=== PATIENT | female | born 1945 | race Caucasian/White ===

== ENCOUNTER 2024-03-23 02:32 | Emergency (ER) | payer MEDICARE, OTHER ==
--- NOTE | 2024-03-23 02:36 | ERPHSYRPT ---
- History of Present Illness Source: patient, family Exam Limitations: no limitations Timing/Duration: yesterday Activites at Onset: none Quality: burning, pressure Onset Location: suprapubic Severity of Pain-Max: moderate Severity of Pain-Current: moderate Sexual intercourse history: non-contributory Modifying Factors: Improves With: urinating Associated Symptoms: abdominal pain (Prepubic), dysuria, urinary frequency, other (Gross hematuria) <SILVESTRE FAULKNER - Last Filed: 03/23/24 06:58> <BUSHRA REDDY - Last Filed: 03/23/24 09:06> - History of Present Illness Time Seen by Provider: 03/23/24 02:36 Physician History: This is a 78-year-old white female patient who arrives by private vehicle escorted by her family member. This patient is a patient of Dr. Reddy. At 9 PM on 03/22/2024, patient was having complaints of burning with urination as well as suprapubic pressure and urinary frequency. At 2:10 AM she noticed the same symptoms but then noticed gross hematuria present. Symptoms seem worse since 2:10 AM today. Patient has never had this type of thing in the past. Patient has never been seen in our emergency department. Patient has no nausea vomiting or diarrhea symptoms. She has no chest pain. She denies shortness of breath. (SILVESTRE FAULKNER) Allergies/Adverse Reactions: naproxen Allergy (Intermediate, Verified 03/23/24 02:41) Hives Travel Risk - International Travel Have you traveled outside of the country in past 3 weeks: No - Emerging Infectious Disease Are you exhibiting symptoms associated with any current EIDs: No <SILVESTRE FAULKNER - Last Filed: 03/23/24 06:58> - Review of Systems Constitutional: No Symptoms Eyes: No Symptoms Ears, Nose, & Throat: No Symptoms Respiratory: No Symptoms Cardiac: No Symptoms Abdominal/Gastrointestinal: Abdominal Pain (Suprapubic tenderness) Genitourinary Symptoms: Dysuria, Frequency, Hematuria (Gross hematuria) Musculoskeletal: No Symptoms Skin: No Symptoms Neurological: No Symptoms Psychological: No Symptoms Endocrine: No Symptoms Hematologic/Lymphatic: No Symptoms Immunological/Allergic: No Symptoms All Other Systems: Reviewed and Negative <SILVESTRE FAULKNER - Last Filed: 03/23/24 06:58> - Past Medical History Pertinent Past Medical History: Yes <SILVESTRE FAULKNER - Last Filed: 03/23/24 06:58> - Physical Exam General Appearance: mild distress, alert, anxiety Eye Exam: PERRL/EOMI, eyes nml inspection Ears, Nose, Throat Exam: normal ENT inspection, moist mucous membranes Neck Exam: normal inspection, non-tender, supple, full range of motion Respiratory Exam: normal breath sounds, lungs clear, airway intact, No chest tenderness, No respiratory distress Cardiovascular Exam: regular rate/rhythm, normal heart sounds, normal peripheral pulses Gastrointestinal/Abdomen Exam: soft, normal bowel sounds, tenderness (Suprapubic region to palpation), guarding (Mild tenderness to palpation of the suprapubic region) Pelvic Exam: not done Rectal Exam: not done Back Exam: normal inspection, normal range of motion, No CVA tenderness, No vertebral tenderness Extremity Exam: normal inspection, normal range of motion, pelvis stable Neurologic Exam: alert, oriented x 3, cooperative, irrigator valve pipe II-XII nml as tested, nml cerebellar function, nml station & gait, sensation nml Skin Exam: normal color, warm, dry Lymphatic Exam: No adenopathy SpO2 Interpretation: normal O2 Delivery: Room Air <SILVESTRE FAULKNER - Last Filed: 03/23/24 06:58> - Nursing Vital Signs Nursing Vital Signs: Initial Vital Signs Temperature 97.3 F 03/23/24 02:41 Pulse Rate 73 03/23/24 02:41 Respiratory Rate 16 03/23/24 02:41 Blood Pressure 213/79 03/23/24 02:41 O2 Sat by Pulse Oximetry 99 03/23/24 02:41 Pain Scale Pain Intensity 0 - Course Nursing assessment & vital signs reviewed: Yes <SILVESTRE FAULKNER - Last Filed: 03/23/24 06:58> Ordered Tests: Active Orders 24 hr Category Date Time Status Bladder Irrigation STAT Care 03/23/24 05:29 Active Mosquera [Catheter-Kirkman Mosquera] STAT Care 03/23/24 05:30 Active IV Insertion STAT Care 03/23/24 03:44 Active ABDOMEN AND PELVIS W/0 CONTRAS [CT] Stat Exams 03/23/24 03:45 Completed CBC Stat Lab 03/23/24 07:38 Completed CBC W DIFF Stat Lab 03/23/24 04:06 Completed CMP Stat Lab 03/23/24 04:06 Completed CULTURE,URINE Stat Lab 03/23/24 03:19 Received PROTIME WITH INR Stat Lab 03/23/24 04:06 Completed UA W/RFX UR CULTURE Stat Lab 03/23/24 03:19 Completed Medication Summary Discontinued Medications Generic Name Dose Route Start Last Admin Trade Name Riccardo PRN Reason Stop Dose Admin Sodium Chloride 500 mls @ 500 mls/hr 03/23/24 03:46 03/23/24 08:35 Sodium Chloride 0.9% 500 Ml IV 03/23/24 04:45 Infused .Q1H ONE Infusion Sodium Chloride Confirm 03/23/24 04:07 Sodium Chloride 0.9% 500 Ml Administered 03/23/24 04:08 Dose 500 mls @ ud IV .STK-MED ONE Levofloxacin 500 mg 03/23/24 07:03 03/23/24 08:35 Levofloxacin 500 Mg Tablet PO 03/23/24 07:04 Not Given STAT ONE Phenazopyridine HCl 200 mg 03/23/24 04:05 03/23/24 04:08 Phenazopyridine Hcl 200 Mg Tablet PO 03/23/24 04:06 200 mg STAT ONE Administration Phenazopyridine HCl Confirm 03/23/24 04:07 Phenazopyridine Hcl 200 Mg Tablet Administered 03/23/24 04:08 Dose 200 mg .ROUTE .STK-MED ONE Lab/Rad Data: Laboratory Result Diagrams 03/23/24 07:38 03/23/24 04:06 Laboratory Results 03/23/24 03/23/24 03/23/24 Range/Units 07:38 04:06 04:06 WBC 8.7 (3.98-10.04) x10^3/uL RBC 3.64 L (3.93-5.22) x10^6/uL Hgb 11.6 (11.2-15.7) g/dL Hct 34.8 (34.1-44.9) % MCV 95.6 H (79.4-94.8) fL MCH 31.9 (25.6-32.2) pg MCHC 33.3 (32.2-35.5) g/dL RDW 13.3 (11.7-14.4) % Plt Count 190 (182-369) x10^3/uL MPV 10.1 (9.4-12.3) fL Gran % (34.0-71.1) % Immature Gran % (Auto) (0.001-0.429) % Nucleat RBC Rel Count (0.00-0.2) % Eos # (Auto) (0.04-0.36) x10^3/uL Immature Gran # (Auto) (0.001-0.031) x10^3u/L Absolute Lymphs (auto) (1.18-3.74) x10^3/uL Absolute Monos (auto) (0.24-0.86) x10^3/uL Absolute Nucleated RBC (0.00-0.012) x10^3u/L Lymphocytes % (19.3-51.7) % Monocytes % (4.7-12.5) % Eosinophils % (0.7-5.8) % Basophils % (0.1-1.2) % Absolute Granulocytes (1.56-6.13) x10^3/uL Basophils # (0.01-0.08) x10^3/uL PT 10.4 (9.4-12.5) SECONDS INR 0.95 (0.8-3.0) Sodium 137 (135-145) mmol/L Potassium 4.3 (3.5-5.1) mmol/L Chloride 105 (98-107) mmol/L Carbon Dioxide 22 (22-30) mmol/L Anion Gap 14.9 (5-15) MEQ/L BUN 30 H (7-17) mg/dL Creatinine 1.05 H (0.52-1.04) mg/dL Estimated GFR 54.1 ML/MIN Glucose 177 H (74-106) mg/dL Calcium 9.9 (8.4-10.2) mg/dL Total Bilirubin 0.40 (0.2-1.3) mg/dL AST 36 (14-36) U/L ALT 30 (0-35) U/L Alkaline Phosphatase 50 (38-126) U/L Serum Total Protein 7.1 (6.3-8.2) g/dL Albumin 4.2 (3.5-5.0) g/dL Urine Color (Yellow) Urine Appearance (Clear) Urine pH (4.6-8.0) Ur Specific [place] (1.005-1.030) Urine Protein (Negative) Urine Glucose (UA) (Negative) mg/dL Urine Ketones (Negative) Urine Blood (Negative) Urine Nitrite (Negative) Urine Bilirubin (Negative) Urine Urobilinogen (0.2) mg/dL Ur Leukocyte Esterase (Negative) U Hyaline Cast (Auto) (0-2) /LPF Urine Microscopic RBC (0-5) /HPF Urine Microscopic WBC (0-5) /HPF Ur Epithelial Cells (None Seen) /HPF Urine Bacteria (None Seen) /HPF Urine Culture Reflexed (NO) ABO Group Rh Factor Antibody Screen (NEGATIVE) 03/23/24 03/23/24 03/23/24 Range/Units 04:06 03:55 03:19 WBC 6.0 (3.98-10.04) x10^3/uL RBC 3.84 L (3.93-5.22) x10^6/uL Hgb 12.2 (11.2-15.7) g/dL Hct 36.2 (34.1-44.9) % MCV 94.3 (79.4-94.8) fL MCH 31.8 (25.6-32.2) pg MCHC 33.7 (32.2-35.5) g/dL RDW 13.5 (11.7-14.4) % Plt Count 235 (182-369) x10^3/uL MPV 10.2 (9.4-12.3) fL Gran % 42.3 (34.0-71.1) % Immature Gran % (Auto) 0.2 (0.001-0.429) % Nucleat RBC Rel Count 0.0 (0.00-0.2) % Eos # (Auto) 0.11 (0.04-0.36) x10^3/uL Immature Gran # (Auto) 0.01 (0.001-0.031) x10^3u/L Absolute Lymphs (auto) 2.77 (1.18-3.74) x10^3/uL Absolute Monos (auto) 0.52 (0.24-0.86) x10^3/uL Absolute Nucleated RBC 0.00 (0.00-0.012) x10^3u/L Lymphocytes % 46.5 (19.3-51.7) % Monocytes % 8.7 (4.7-12.5) % Eosinophils % 1.8 (0.7-5.8) % Basophils % 0.5 (0.1-1.2) % Absolute Granulocytes 2.52 (1.56-6.13) x10^3/uL Basophils # 0.03 (0.01-0.08) x10^3/uL PT (9.4-12.5) SECONDS INR (0.8-3.0) Sodium (135-145) mmol/L Potassium (3.5-5.1) mmol/L Chloride (98-107) mmol/L Carbon Dioxide (22-30) mmol/L Anion Gap (5-15) MEQ/L BUN (7-17) mg/dL Creatinine (0.52-1.04) mg/dL Estimated GFR ML/MIN Glucose (74-106) mg/dL Calcium (8.4-10.2) mg/dL Total Bilirubin (0.2-1.3) mg/dL AST (14-36) U/L ALT (0-35) U/L Alkaline Phosphatase (38-126) U/L Serum Total Protein (6.3-8.2) g/dL Albumin (3.5-5.0) g/dL Urine Color Yellow (Yellow) Urine Appearance Turbid A (Clear) Urine pH 7.0 (4.6-8.0) Ur Specific [place] >=1.030 A (1.005-1.030) Urine Protein >=1000 A (Negative) Urine Glucose (UA) 100 A (Negative) mg/dL Urine Ketones Negative (Negative) Urine Blood Large A (Negative) Urine Nitrite Negative (Negative) Urine Bilirubin Negative (Negative) Urine Urobilinogen 0.2 (0.2) mg/dL Ur Leukocyte Esterase Trace A (Negative) U Hyaline Cast (Auto) NONE SEEN (0-2) /LPF Urine Microscopic RBC >100 A (0-5) /HPF Urine Microscopic WBC 3-5 (0-5) /HPF Ur Epithelial Cells Rare (None Seen) /HPF Urine Bacteria Rare A (None Seen) /HPF Urine Culture Reflexed YES (NO) ABO Group A Rh Factor POSITIVE Antibody Screen NEGATIVE (NEGATIVE) - Progress Air Movement: good Blood Culture(s) Obtained: Yes Counseled pt/family regarding: lab results, diagnosis, rad results <SILVESTRE FAULKNER - Last Filed: 03/23/24 06:58> - Progress Progress Note: 03/23/24 04:11 My medical decision making and the assignment of moderate complexity to this patient's medical issue today is based on review of the patient's past medical history, review the patient's medication list, reviewed patient drug allergy list, history present illness and physical findings on examination. The workup in this patient includes placement of an intravenous line, infusion of crystal loid solution, Pyridium orally, CBC, CMP, PT/INR, CT scan of the abdomen-pelvis without contrast and type and screen. Differential diagnosis includes but is not limited to urinary tract infection, hemorrhagic cystitis, bladder tumors, urinary system bleeding 03/23/24 06:58 I interpreted the patient's laboratory data results. Based on the laboratory data results the patient has possibly a mild urinary tract infection versus hemorrhagic cystitis. She has a normal hemoglobin at 12.2 and normal white count with no left shift. She has normal liver function test and normal coagulation studies. Her urine also shows a large amount of blood present. The CT scan of the abdomen pelvis without contrast was interpreted by the radiologist and I reviewed the impression. The impression states a minute left upper calyceal nonobstructing renal calculus. The urinary bladder shows heterogeneous, hypodense contents possibly hematoma. underlying soft tissues lesions cannot be excluded. Endoscopy/cystoscopy recommended. The patient is hemodynamically stable, her coags are within normal limits and her hemoglobin is normal. She has no pain. She has a three-way Mosquera catheter in place at this time and she is having aggressive irrigation of her urinary bladder with saline which seems to be clearing the urinary bladder of clots. We will continue this for another hour or so. I have discussed this with Dr. Reddy, who I am transferring care to at shift change. He will follow-up on reexamining her and make decisions on this patient's final disposition. (SILVESTRE FAULKNER) Medical Desision Making - Independent Historian Additional History obtained from: Family - Diagnostic Testing Diagnostic test were ordered, analyzed, and reviewed by me: Yes Radiological Interpretation: Reviewed by me, Teleradiologist Report <SILVESTRE FAULKNER - Last Filed: 03/23/24 06:58> - Independent Historian Additional History obtained from: Family - Discussion of managment Care discussed with:: PCP Reviewed:: Test results, Need for additional workup Agreed on:: Treatment plan, need for follow-up - Risk of complications The pt has a mod risk of morbidity or mortality based on: Need for minor surgical intervention in patient with know risk factors <BUSHRA REDDY - Last Filed: 03/23/24 09:06> - Departure Departure Disposition: Home Critical Care Time: No <SILVESTRE FAULKNER - Last Filed: 03/23/24 06:58> - Departure Departure Disposition: Home Critical Care Time: No <BUSHRA REDDY - Last Filed: 03/23/24 09:06> - Departure Clinical Impression: Gross hematuria Condition: Stable Referrals: BUSHRA REDDY MD [Primary Care Provider] - Follow Up with PCP/3 days Instructions: Blood in the urine (hematuria) in adults, How to Care for Your Mosquera Catheter, Mosquera Catheter Additional Instructions: We have made arrangements for home health nurse to come and check on your catheter. We are providing you some information about catheter care. Call your primary care physician on Monday morning to make an arrangements with the appointment with the urologist. Discharge/Care Plan SETH STEVENS was seen on 03/23/24 in the Emergency Room. The patient was counseled regarding Diagnosis,Lab results, Imaging studies, need for follow up and when to return to the Emergency Room. Prescriptions given: Discharge Note I have spoken with the patient and/or caregivers. I have explained the patient's condition, diagnosis and treatment plan based on the information available to me at this time. I have answered the patient's and/or caregiver's questions and addressed any concerns. The patient and/or caregivers have as good understanding of the patient's diagnosis, condition and treatment plan as can be expected at this point. The vital signs have been stable. The patient's condition is stable and appropriate for discharge from the emergency department. The patient will pursue further outpatient evaluation with the primary care physician or other designated or consulting physician as outlined in the discharge instructions. The patient and/or caregivers are agreeable to this plan of care and follow-up instructions have been explained in detail. The patient and/or caregivers have received these instruction. The patient/and or caregivers are aware that any significant change in condition or worsening of symptoms should prompt an immediate return to this or the closest emergency department or call 911. SETH STEVENS was seen on 03/23/24 n the Emergency Room. At that time you were treated for an emergent condition, during your visit Laboratory, Radiology and/or other procedures may have been ordered. It is very important that you follow-up with your Primary Care Physician BUSHRA REDDY within the next 24-48 hours to review your Emergency Room visit and the final results of testing that was ordered. Some test results such as Urine Cultures, Blood Cultures, and other cultures if ordered will not be finalized for 24-48 hours. If you do not have a Primary Care Provider please call the medical records department at [phone] to obtain a copy of your results or you may sign into our patient portal to obtain these results by visiting us @ [email or web address] and completing the following steps: 1. Click on the Patient Portal link 2. Click the Patient Self Enrollment Link to complete the enrollment form and entering your 3. Once the enrollment form is completed you will receive an email with a temporary ID and password at the email address you provided. 4. Next choose a user name and password. Your user name must be at least 4 characters long and your password must be at least 4 characters long. 5. Choose a security question from the list and provide your answer to the question. If you already have signed into the Health Portal you may access your Health Care Information 26/12 by the following steps: 1. Login to our website @ [email or web address]. Enter your original user name and password. FAQS [facility] Health Portal is an online tool that contains your Lab Results, Radiology Reports, Visit History, Discharge Instructions and Health Summary Lab and Radiology Results will not be available for 72 hours on the portal. The Portal is a secure site, passwords are encryted and URLs are re-written so they cannot be copied and pasted. You and authorized family members are the only ones who can access your Portal. Also there is a timeout feature that protects your information if you leave the Portal page open. If you have technical difficulty please use the Contact Us link on the page this will allow you to submit any questions you have regarding the Portal or you may contact the Medical Record Department at [phone]. Prescriptions: Ciprofloxacin [Cipro 500 MG] 500 mg PO BIDAC #20 tablet Cyclobenzaprine HCl 10 mg [Flexeril 10 MG] 10 mg PO TID #15 tablet
[2024-03-23 02:57] VITALS: TEMP 97.3
[2024-03-23] MEDS ORDERED: Sodium Chloride 0.9% 500 ML 500 ML IV ONE (04:07)
[2024-03-23] MEDS ORDERED: PYRIDIUM 200 MG ONE (04:07)
[2024-03-23] MEDS: Sodium Chloride 0.9% 500 ML 500 ML IV ONE (04:08)
[2024-03-23] MEDS: PYRIDIUM 200 MG PO ONE (04:08)
[2024-03-23 04:10] LABS: Absolute Neutrophil Ct (ANC) 2.52 x10^3/uL (1.56-6.13); BASOPHIL % 0.5 % (0.1-1.2); Basophil (Absolute #) 0.03 x10^3/uL (0.01-0.08); Eosinophil % 1.8 % (0.7-5.8); Eosinophil (Absolute #) 0.11 x10^3/uL (0.04-0.36); Hematocrit 36.2 % (34.1-44.9); Hemoglobin 12.2 g/dL (11.2-15.7); IMMATURE GRAN # 0.01 x10^3u/L (0.001-0.031); IMMATURE GRAN % 0.2 % (0.001-0.429); Lymphocyte (Absolute #) 2.77 x10^3/uL (1.18-3.74); Lymphocytes % 46.5 % (19.3-51.7); Mean Cell Volume 94.3 fL (79.4-94.8); Mean Corpuscular Hemoglobin 31.8 pg (25.6-32.2); Mean Corpuscular Hgb Concent. 33.7 g/dL (32.2-35.5); Mean Platelet Volume 10.2 fL (9.4-12.3); Monocyte (Absolute #) 0.52 x10^3/uL (0.24-0.86); Monocytes % 8.7 % (4.7-12.5); Neutrophil % 42.3 % (34.0-71.1); Platelet Count 235 x10^3/uL (182-369); Red Blood Count 3.84 x10^6/uL (3.93-5.22); Red Cell Distribution Width 13.5 % (11.7-14.4)
[2024-03-23 04:15] LABS: Appearance Turbid (Clear); Bilirubin Negative (Negative); Blood Large (Negative); Glucose, Urine 100 mg/dL (Negative); Ketones Negative (Negative); Leukocyte Esterase Trace (Negative); Nitrite Negative (Negative); Protein,Urine Dip >=1000 (Negative); Specific Gravity >=1.030 (1.005-1.030); Urobilinogen 0.2 mg/dL (0.2)
[2024-03-23 04:15] LABS: ALBUMIN 4.2 g/dL (3.5-5.0); ANION GAP 14.9 MEQ/L (5-15); BILIRUBIN,TOTAL 0.4 mg/dL (0.2-1.3); Calcium 9.9 mg/dL (8.4-10.2); Creatinine 1 1.05 mg/dL (0.52-1.04); EST GLOMERULAR FILTRATION RATE 54.1 ML/MIN; Potassium 4.3 mmol/L (3.5-5.1); Total Protein 7.1 g/dL (6.3-8.2)
[2024-03-23 04:16] LABS: RBC >100 /HPF (0-5)
[2024-03-23 04:17] LABS: Bacteria Rare /HPF (None Seen); Epithelial Cells Rare /HPF (None Seen); Hyaline Casts NONE SEEN /LPF (0-2)
[2024-03-23 04:49] LABS: INR 0.95 (0.8-3.0); PROTIME 10.4 SECONDS (9.4-12.5)
[2024-03-23 05:04] LABS: ABO TYPING A; Antibody Screen NEGATIVE (NEGATIVE); RH TYPING POSITIVE
--- NOTE | 2024-03-23 05:20 | XRAY ---
CLINICAL HISTORY: Gross hematuria COMPARISON: None. TECHNIQUE: Axial CT scan of the abdomen and pelvis was performed without contrast. Coronal and sagittal reconstructive images were also obtained. One of the following dose reduction techniques were utilized for this exam: Automated exposure control, adjustment of the mA and/or kV according to patient size, use of iterative reconstruction? FINDINGS: A minute left upper calyceal non-obstructing renal calculus is seen measuring 2 mm. The kidneys are otherwise unremarkable. No sizable calculi, focal lesions or hydronephrosis. The urinary bladder is well distended showing internal heterogenous hyperdense contents, possibly hematoma. Underlying soft tissue lesions couldn't be excluded. The liver is average in size showing a smooth outline. No focal or diffuse parenchymal abnormality. The intrahepatic biliary radicals and the bile ducts are unremarkable. The spleen, pancreas, and adrenal glands are unremarkable. Multiple radio-dense calculi in the gall bladder. No signs of cholecystitis. Multiple colonic diverticular outpouchings are seen with clear surrounding fat. Otherwise, the ascending colon, the transverse colon, the descending, rectosigmoid colon, and visualized small bowel loops are unremarkable. No gross bowel masses or signs of intestinal obstruction. The appendix is not visualized however no fat stranding or collection is seen in the right iliac fossa No significant mesenteric, pelvic, or retroperitoneal lymph node enlargement. Vascular atherosclerotic changes. No ascites or retroperitoneal collections. Non-visualized uterus, likely surgically removed. Degenerative changes of the spine. No aggressive-looking bone lesions. Hiatus hernia. The scanned lower lung cuts show fine atelectatic bands. IMPRESSION: 1. A minute left upper calyceal non-obstructing renal calculus. 2. Urinary bladder heterogenous hyperdense contents, possibly hematoma keeping with the history of gross hematuria. Underlying soft tissue lesions couldn't be excluded and need further assessment and endoscopy if indicated. 3. Non-complicated colonic diverticulosis. 4. Calcular gall bladder with no signs of cholecystitis. Electronically Signed by: Amanda Luis MD. (03/23/2024 05:16:08 EDT)
[2024-03-23 07:39] LABS: Hematocrit 34.8 % (34.1-44.9); Hemoglobin 11.6 g/dL (11.2-15.7); Mean Cell Volume 95.6 fL (79.4-94.8); Mean Corpuscular Hemoglobin 31.9 pg (25.6-32.2); Mean Corpuscular Hgb Concent. 33.3 g/dL (32.2-35.5); Mean Platelet Volume 10.1 fL (9.4-12.3); Platelet Count 190 x10^3/uL (182-369); Red Blood Count 3.64 x10^6/uL (3.93-5.22); Red Cell Distribution Width 13.3 % (11.7-14.4); White Blood Count 8.7 x10^3/uL (3.98-10.04)
[2024-03-23] MEDS: Levofloxacin 500 MG Tablet PO ONE (08:35)
[2024-03-23 08:36] VITALS: RESP 18; O2SAT 97
[2024-03-23] MEDS ORDERED: ROCEPHIN 1 GM / 100 ML NaCl 1 GM/100 ML IVPB IV ONE (09:12)
[2024-03-23] MEDS: ROCEPHIN 1 GM / 100 ML NaCl 1 GM/100 ML IVPB IV ONE (09:15)
[2024-03-23 09:25] VITALS: BP 143/58; PULSE 68
== END 2024-03-23 10:03 | disposition home or self-care (01) ==
LOC: ED 02:32
DX: R31.0 Gross hematuria (principal); R30.0 Dysuria; R35.0 Frequency of micturition
CPT/HCPCS: 36000; 36415; 51702; 74176; 80053; 81001; 85025; 85027; 85610; 86850; 86900; 86901; 87077; 87086; 87186; 96365; 96374; 99284; J0696; A9270-GY